=== PATIENT | female | born 1995 | race Caucasian/White ===

== ENCOUNTER 2024-07-09 13:18 | Emergency (ER) | payer OTHER, SELFPAY ==
--- NOTE | 2024-07-09 13:25 | ED.ANIMALBIT ---
HPI - Animal Bite General Chief Complaint: Animal Bite Stated Complaint: Rt Hand Dog Bite Time Seen by Provider: 07/09/24 13:23 patient presents to the [facility] with complaints of puncture wound to right hand that happened just prior to arrival at urgent care. Patient reports she was at home and thought her dog was chewing on something went to get the side of his mouth and found that the bowel was having a seizure. No history of seizures for the dog. No history of aggression with a dog. Patient reports she cleaned the area but given the place and that was a dog bite that should be evaluated. Dog is up-to-date on all immunizations. Patient reports tetanus vaccination last year. Does have some odd sensations going up her right middle finger but denies any swelling, numbness or tingling at this time Related Data Allergies Allergy/AdvReac Type Severity Reaction Status Date / Time No Known Allergies Allergy Verified 07/09/24 13:33 Review of Systems Constitutional: Constitutional: Reports as per HPI, Denies chills, Denies fatigue, Denies fever(s) and Denies weakness Cardiovascular: Cardiovascular: Reports no additional cardiovascular complaints Respiratory: Respiratory: Reports no additional respiratory complaints Gastrointestinal: Gastrointestinal: Reports no additional gastrointestinal complaints Musculoskeletal: Musculoskeletal: Reports as per HPI, Denies arthralgias and Denies joint swelling Integumentary/Breasts: Skin/Breast: Reports as per HPI, Denies erythema and Denies rash Comments: puncture wound right hand from dog bite Neurologic: Reports as per HPI, Denies focal weakness, Denies numbness and Denies weakness Comments: odd sensation to right middle finger- not described as numbness or tingling Psychiatric: Psychiatric: Reports no additional psychiatric complaints Exam Const: General: healthy appearing and no acute distress; No diaphoretic or ill appearing Nutritional Appearance: well nourished Orientation/consciousness: patient oriented x3 Limitations: no limitations Resp: Effort & Inspection: normal respiratory effort Cardio: Rate: regular rate Skin: General skin exam: normal color Rashes: no rashes Wounds: wounds noted Neuro: General: patient oriented x3 and moves all extremities Speech: normal speech Gait exam (Neuro): Normal gait present Extrem: Right upper extremity: Extremity exam: right hand (puncture wound palmar side of right hand ) abnormal to inspection, normal capillary refill, neuromotor exam normal, neurosensory exam normal, tendon exam normal, tenderness, normal ROM of fingers and no swelling; no lacerations, no ecchymosis and no crepitus Psych: Mental Status: mental status grossly normal Affect: normal affect Attitude: cooperative Course Course Level of Care: Express Care Visit MDM - Animal Bite MDM Narrative Medical decision making narrative: no concern for rabies. Up-to-date on tetanus animal up-to-date on vaccinations Discharge instructions reviewed with patient, as well as provided in writing per nursing staff. The instructions also include specific and strict return/GO TO THE ER as well as f/u information. All questions have been answered, and the patient deny any further questions with discharge and discharge plan. Differential Diagnosis Differential diagnosis: Likely bite by animal, dog bite and rabies contact Medical Records Attestation: I reviewed the patient's medical records. Discharge Plan Discharge Clinical Impression: Bite by animal, Dog bite Patient Disposition: Home Condition: Stable Instructions: Antibiotic Form, Animal Bite (ED) Additional Instructions: Take the antibiotics until gone keep area clean and dry apply triple antibiotic or bacitracin to the area and cover with a bandage may notice redness, bruising, and swelling over the next couple days this should subside and improved. If this begins to get significant follow-up with our hand surgeon Dr Doran. Patient Language: Spanish Prescriptions: New amoxicillin-pot clavulanate 875-125 mg tablet 1 tablet PO Q12H Qty: 20 0RF Follow-up/Referrals: HENSLEY, [Primary Care Provider] - Time of Disposition: 13:54
[2024-07-09 13:27] VITALS: BP 111/78; PULSE 84; RESP 18; TEMP 36.2; O2SAT 100
== END 2024-07-09 13:55 | disposition home or self-care (01) ==
PROVIDERS: Emergency Provider Nurse Practitioner Family
DX: S61.451A Open bite of right hand, initial encounter (principal); W54.0XXA Bitten by dog, initial encounter
CPT/HCPCS: 99203; G0463